=== PATIENT | female | born 1980 | race Caucasian/White ===

== ENCOUNTER 2018-11-01 02:27 | Emergency (ER) | payer BC, OTHER ==
[2018-11-01] MEDS ORDERED: NS 1,000 ML IV ONE (02:48)
[2018-11-01 02:59] LABS: PLATELET COUNT 189 10^3/uL (150-400)
--- NOTE | 2018-11-01 03:55 | EDPHY ---
H & P Stated Complaint: LLQ abd pain since yesterday poss preg Time Seen by Provider: 11/01/18 03:19 HPI/ROS: HPI The patient presents with vaginal bleeding and left lower quadrant abdominal pain. Her vaginal bleeding began last night, it is red and does not have clots. She is using just a few pad since it started. She is about 5 days late for her period now and is trying to get . Tonight, she developed left- sided lower abdominal pain which is cramping and aching in nature which is moderate in severity. She took a home test and it was negative. REVIEW OF SYSTEMS 10 systems were reviewed and negative with the exception of the elements mentioned in the history of present illness. PMHx: Healthy Soc Hx: Here with her PHYSICAL General Appearance: Alert, no distress Eyes: Pupils equal and round no pallor or injection ENT, Mouth: Mucous membranes moist Respiratory: There are no retractions, lungs are clear to auscultation Cardiovascular: Regular rate and rhythm Gastrointestinal: Abdomen is soft and tender in the left lower quadrant, no masses, bowel sounds normal Neurological: A&O, moves all extremities Skin: Warm and dry, no rashes Musculoskeletal: Neck is supple non tender Extremities: symmetrical, full range of motion Psychiatric: Patient is oriented X 3, there is no agitation Source: Patient Exam Limitations: No limitations - Personal History LMP (Females 10-55): Over 28 Days Ago Current Tetanus/Diphtheria Vaccine: Yes Current Tetanus Diphtheria and Acellular Pertussis (TDAP): Yes - Medical/Surgical History Hx Asthma: No Hx Chronic Respiratory Disease: No Hx Diabetes: No Hx Cardiac Disease: No Hx Renal Disease: No Hx Cirrhosis: No Hx Alcoholism: No Hx HIV/AIDS: No Hx Splenectomy or Spleen Trauma: No Other PMH: denies - Social History Smoking Status: Never smoked Constitutional: Initial Vital Signs Temperature (C) 37.1 C 11/01/18 02:28 Heart Rate 99 11/01/18 02:28 Respiratory Rate 16 11/01/18 02:28 Blood Pressure 125/88 H 11/01/18 02:28 O2 Sat (%) 95 11/01/18 02:28 O2 Delivery Mode Room Air Allergies/Adverse Reactions: No Known Allergies Allergy (Unverified 11/01/18 02:31) Home Medications: Medication Instructions Recorded Multivitamin Tablet 04/24/19 Medical Decision Making - Diagnostics Imaging Results: Pelvic ultrasound demonstrates small right-sided ovarian cyst with normal flow to left ovary with no cyst present, interpreted by direct Radiology. Differential Diagnosis: This is a 38-year-old healthy female who presents with irregular vaginal bleeding, left lower quadrant abdominal pain. Here, labs are relatively unremarkable, hCG is negative. She underwent pelvic ultrasound which was normal demonstrating a corpus luteal cyst on the right. She felt well enough to go home and will be discharged. I have instructed her to take ibuprofen as needed for pain. I have given her follow-up information for OBGYN at [facility] where she gets her primary care. The cause of her symptoms is not entirely clear at this point, I have considered ectopic , ruptured ovarian cyst, ovarian cyst with torsion. - Data Points Laboratory Results: Laboratory Results 11/01/18 02:48 11/01/18 02:48 Medications Given: Discontinued Medications Sodium Chloride (Ns) 1,000 mls @ 0 mls/hr IV ONCE ONE; Wide Open PRN Reason: Protocol Stop: 11/01/18 02:49 Last Admin: 11/01/18 03:00 Dose: 1,000 mls Departure - Departure Disposition: Home, Routine, Self-Care Clinical Impression: LLQ abdominal pain, Vaginal bleeding Condition: Good Instructions: Dysfunctional Uterine Bleeding (ED) Additional Instructions: Your ultrasound today was normal. An your blood test showed no signs of . Please follow-up with your primary care doctor or OBGYN which I have listed below. Return to the ER if your worse in any way. Referrals: Debby Salgado MD [Unknown] - As per Instructions
[2018-11-01 05:36] VITALS: BP 113/73
== END 2018-11-01 05:35 | disposition home or self-care (01) ==
DX: N93.9 Abnormal uterine and vaginal bleeding, unspecified (principal); R10.32 Left lower quadrant pain; E86.9 Volume depletion, unspecified